=== PATIENT | female | born 1990 | race African-American/Black ===

== ENCOUNTER 2021-06-06 14:32 | Emergency (ER) | payer MEDICAID ==
[~2021-06-06] VITALS: Ht 170.2 cm; Wt 113.4 kg
--- NOTE | 2021-06-06 14:32 | NUR ---
V[address] FOR BIZARRE BEHAVIOR RUNNING AROUND THE STREET AND LAC ON R R HAND. PT IS AAOX2, NOT IN RESPIRATORY DISTRESS, HOOKED TO V/S MONITOR, KEPT RESTED AND COMFORTABLE. WILL CONTINUE TO MONITOR.
--- NOTE | 2021-06-06 14:49 | NUR ---
PT SEEN AND EXAMINED BY .
[2021-06-06] MEDS ORDERED: diphenhydrAMINE HCL 50 MG/ML VIAL IM ONE (15:00)
[2021-06-06] MEDS ORDERED: IV NS 0.9% 1,000 ML BAG IV ONE ×2 (15:00→18:00)
[2021-06-06] MEDS ORDERED: OLANZAPINE 10 MG VIAL IM ONE ×2 (15:00→15:11)
[2021-06-06] MEDS ORDERED: LORAZEPAM INJ 2 MG/ML VIAL IM ONE (15:00)
[2021-06-06] MEDS ORDERED: diphenhydrAMINE HCL 50 MG/ML VIAL ONE (15:11)
[2021-06-06] MEDS ORDERED: LORAZEPAM INJ 2 MG/ML VIAL ONE (15:12)
--- NOTE | 2021-06-06 15:30 | NUR ---
IV LINE ESTABLISHED BLOOD DRAWN AND SENT TO LAB.
[2021-06-06 16:06] LABS: BASOPHILS % (AUTO) 0.3 % (0.0-2.0); HEMATOCRIT 42 % (33-45); HEMOGLOBIN 14.1 g/dL (11.5-14.8); LYMPHOCYTES # (AUTO) 1.1 K/uL (0.8-4.8); MEAN CORPUSCULAR HGB CONC 33 g/dl (31.0-36.0); MEAN CORPUSCULAR VOLUME 91 fL (82-100); MONOCYTES # (AUTO) 1.3 K/uL (0.1-1.30); MONOCYTES % (AUTO) 8.2 % (2.0-12.0); NEUTROPHILS # (AUTO) 13.3 K/uL (1.8-8.9); NEUTROPHILS % (AUTO) 84.5 % (43.0-81.0); PLATELET COUNT (AUTO) 391 K/uL (150-450); RED BLOOD CELL COUNT(AUTO) 4.66 MIL/uL (4.0-5.2); WHITE BLOOD COUNT (AUTO) 15.8 K/uL (4.3-11.0)
[2021-06-06 16:11] LABS: CALCIUM, SERUM 9.2 mg/dL (8.5-10.1); CARBON DIOXIDE 21 mmol/L (21-32); CHLORIDE 104 mmol/L (98-107); CREATININE 1.4 mg/dL (0.6-1.3); GLUCOSE 111 mg/dL (74-106); POTASSIUM 3.9 mmol/L (3.5-5.1); SODIUM SERUM 138 mmol/L (136-145); UREA NITROGEN, BLOOD 11 mg/dL (7-18)
[2021-06-06 16:17] LABS: ALANINE AMINOTRANSFERASE 31 U/L (12-78); ALBUMIN 4.1 g/dL (3.4-5.0); ALCOHOL, BLOOD < 3 mg/dL (0-0); ALKALINE PHOSPHATASE 91 U/L (46-116); ASPARTATE AMINOTRANSFERASE 26 U/L (15-37); BILIRUBIN,DIRECT 0.3 mg/dL (0.0-0.2); BILIRUBIN,TOTAL 1.3 mg/dL (0.2-1.0); TOTAL PROTEIN, SERUM 8.7 g/dL (6.4-8.2)
[2021-06-06 16:22] LABS: ACETAMINOPHEN 0 ug/ml (10-30)
[2021-06-06] MEDS ORDERED: LIDOCAINE HCL/PF 1% 30 ML VIAL TP ONE (17:30)
[2021-06-06] MEDS ORDERED: MIDAZOLAM HCL 5 MG/5ML VIAL IV ONE (17:30)
[2021-06-06] MEDS ORDERED: LIDOCAINE HCL/MPF 1% 30 ML VIAL IJ ONE (17:33)
[2021-06-06] MEDS ORDERED: MIDAZOLAM HCL 5 MG/5ML VIAL ONE ×2 (17:49→18:10)
[2021-06-06] MEDS ORDERED: PROPOFOL 20 ML IV ONE (18:20)
--- NOTE | 2021-06-06 18:53 | NUR ---
SUTURING DONE BY YO ABDI.
--- NOTE | 2021-06-06 19:08 | NUR ---
[facility] COLLECTED AND SENT
--- NOTE | 2021-06-06 19:20 | NUR ---
FOLLOWED UP WITH LAB TO VOIP TECHNICIAN URINE
[2021-06-06] MEDS ORDERED: MIDAZOLAM HCL 2 MG/2ML VIAL IV ONE (19:30)
[2021-06-06] MEDS ORDERED: PROPOFOL 200 MG/20 ML VIAL IV ONE (19:30)
--- NOTE | 2021-06-06 19:34 | NUR ---
BRENDON, BROTHER, CALLED AND ASKED FOR UPDATE
[2021-06-06 19:50] LABS: BILIRUBIN,URINE NEGATIVE (NEGATIVE); COLOR,URINE YELLOW (YELLOW); LEUKOCYTE ESTERASE ,URINE NEGATIVE (NEGATIVE); NITRITE, URINE NEGATIVE (NEGATIVE); PROTEIN,URINE 30 mg/dl (NEGATIVE); UGLUCOSE NEGATIVE (NEGATIVE); UROBILINOGEN,URINE 0.2 EU/dL (0.2)
[2021-06-06 19:57] LABS: BACTERIA,URINE 1+ /HPF (None Seen); MUCUS,URINE Moderate /LPF (None Seen); RBC,URINE 0-2 /HPF (0-2); WBC,URINE 0-2 /HPF (0-3)
--- NOTE | 2021-06-07 02:20 | NUR ---
PT placed on a 5150 psychiatric hold by [facility] for DTS and DTO Patient was engaged in destructive behavior due to auditory and visual hallucinations as well as over use of marijuana.
--- NOTE | 2021-06-07 02:32 | NUR ---
COVID SWAB COLLECTED AND SENT TO LAB
--- NOTE | 2021-06-07 02:49 | NUR ---
Patient's on 5150 HOlD. Clinical's where faxed to various hospitals for placement (see chat for info). Please follow up in AM and contact brother Pedro([phone]) to inform of hospital patient is transferred to.
--- NOTE | 2021-06-07 07:45 | NUR ---
PT RESTING IN BED, VITAL SIGNS ARE STABLE
--- NOTE | 2021-06-07 10:01 | NUR ---
Refaxed clinicals to [facility] [fax: [phone]], [facility] [fax: [phone]], [facility] [fax: [phone]].
--- NOTE | 2021-06-07 11:18 | NUR ---
Followed-up with [facility] and [facility], awaiting for a bed.
--- NOTE | 2021-06-07 15:14 | NUR ---
[facility] CALLED AND STATED THAT THERE IS NO BEDS AVAILABLE. FOLLOWED-UP WITH MALENA HERNANDEZ, STILL WAITING FOR RESPONSE.
--- NOTE | 2021-06-07 21:02 | NUR ---
BROTHER MALINDA CALLED [phone] FOR UPDATE
--- NOTE | 2021-06-08 02:14 | NUR ---
SEEN AND EVALUATED BY DANNY DIMAS
--- NOTE | 2021-06-08 02:29 | NUR ---
patient still experiencing symptoms. Clinician contacted psychiatric welding production supervisor to evaluate patient in the AM
[2021-06-08] MEDS ORDERED: OLANZAPINE 10 MG VIAL IM ONE ×2 (02:30→03:28)
--- NOTE | 2021-06-08 03:37 | NUR ---
PT C/O NOT BEING ABLE TO FALL ASLEEP. PT CALM & COMPLIANT. ADMINISTERED ZYPREXA 10MG IM L DELTOID. WILL CONTINUE TO MONITOR.
--- NOTE | 2021-06-08 10:45 | NUR ---
SPOKE TO REJI FROM [facility] IN [place] PT IS GOING TO [address] [place] [address] [address]ARE OF DR. SULTANA NUMBER FOR REPORT [phone] CALLED [facility] AND SET UP BLS TRANSPORT ETA [phone]
[2021-06-08] MEDS ORDERED: OLANZAPINE ZYDIS 5 MG TAB.RAPDIS PO SCH (11:00)
[2021-06-08] MEDS ORDERED: OLANZAPINE 5 MG TABLET ONE (11:33)
[2021-06-08 12:44] VITALS: BP 134/74
--- NOTE | 2021-06-08 13:51 | NUR ---
REPORT GIVEN TO TET FOR [facility]
--- NOTE | 2021-06-08 14:22 | NUR ---
PT TRANSPORT TO [facility] IN [place] IN STABLE CONDITION.
== END 2021-06-08 14:28 ==
LOC: ER 14:37 → EDBD 14:37 → ER 06-08 14:28
DX: F31.2 Bipolar disorder, current episode manic severe with psychotic features (principal); R45.851 Suicidal ideations; F12.90 Cannabis use, unspecified, uncomplicated; S61.214A Laceration without foreign body of right ring finger without damage to nail, initial encounter; S61.216A Laceration without foreign body of right little finger without damage to nail, initial encounter; S61.511A Laceration without foreign body of right wrist, initial encounter; W45.8XXA Other foreign body or object entering through skin, initial encounter; Y92.89 Other specified places as the place of occurrence of the external cause; E66.01 Morbid (severe) obesity due to excess calories; Z68.39 Body mass index [BMI] 39.0-39.9, adult; D72.829 Elevated white blood cell count, unspecified
CPT/HCPCS: 12002; 36415; 73120; 80048; 80076; 80143; 80307; 80320; 81001; 82550; 82553; 84703; 85025; 96361; 96372 ×3; 96374; 96375; 99152; 99285; J1200; J2060; J2250 ×2; J2704; J3490 ×4; J7030; G0480; G0500